=== PATIENT | male | born 2000 | race Caucasian/White ===

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

== ENCOUNTER 2019-01-31 15:05 | Emergency (ER) | payer OTHER ==
[2019-01-31 15:35] VITALS: BP 116/69
--- NOTE | 2019-01-31 15:54 | UC ---
Ear Complaint HPI - HPI Summary HPI Summary: 18 yo male presents with ear pain. He tells me that he has a history of chronic ear infections. Over the last 2 weeks has had b/l ear fullness. Has not taken anything OTC for this. Over the last 2-3 days has had left ear pain and decreased hearing. He denies headache, sinus symptoms, sore throat, cough. - History of Current Complaint Chief Complaint: UCEar Stated Complaint: EARACHE Time Seen by Provider: 01/31/19 15:54 Hx Obtained From: Patient Onset/Duration: Gradual Onset Severity Initially: Mild Severity Currently: Mild Pain Intensity: 3 Pain Scale Used: 0-10 Numeric - Allergies/Home Medications Allergies/Adverse Reactions: Allergies Allergy/AdvReac Type Severity Reaction Status Date / Time No Known Allergies Allergy Verified 01/31/19 15:35 PMH/Surg Hx/FS Hx/Imm Hx - Additional Past Medical History Additional PMH: None - Surgical History Surgical History: Yes Surgery Procedure, Year, and Place: appendectomy 2002 - Family History Known Family History: Positive: Other - "cancer" - Social History Lives: With Family Alcohol Use: None Substance Use Type: Other Substance Use Comment - Amount & Last Used: thc concentrate daily Smoking Status (MU): Never Smoked Tobacco - Immunization History Most Recent Influenza Vaccination: doesn't get Vaccination Up to Date: Yes Review of Systems All Other Systems Reviewed And Are Negative: No Constitutional: Positive: Negative Skin: Positive: Negative Eyes: Positive: Negative ENT: Positive: Ear Ache Respiratory: Positive: Negative Cardiovascular: Positive: Negative Gastrointestinal: Positive: Negative Neurological: Positive: Negative Psychological: Positive: Negative Physical Exam - Summary Physical Exam Summary: GENERAL: NAD. WDWN. No pain distress. SKIN: No rashes, sores, lesions, or open wounds. HEENT: Head: AT/NC Eyes: EOM intact. Conjunctiva clear without inflammation or discharge. Ears: Hearing grossly normal. LEFT EAR: Rivera/brown cerumen impacted within. S/p disimpaction; TMs intact, no bulging, erythema, or edema. Nose: Nasal mucosa pink and moist. NTTP maxillary and frontal sinus. Throat: Posterior oropharynx without exudates, erythema, or tonsillar enlargement. Uvula midline. NECK: Supple. Nontender. No lymphadenopathy. CHEST: CTAB. No accessory muscle use. Breathing comfortably and in no distress. CV: RRR. Pulses intact. Cap refill <2seconds NEURO: Alert. PSYCH: Age appropriate behavior. Triage Information Reviewed: Yes Vital Signs: Initial Vital Signs Temp 99.3 F 01/31/19 15:28 Pulse 73 01/31/19 15:28 Resp 16 01/31/19 15:28 BP 116/69 01/31/19 15:28 Pulse Ox 100 01/31/19 15:28 Vital Signs Reviewed: Yes Ear Complaint Course/Dx - Course Course Of Treatment: Cerumen impaction left ear with successful disimpaction by nursing. Pt had complete resolution of symptoms - Differential Dx/Diagnosis Provider Diagnosis: Cerumen impaction Discharge ED - Sign-Out/Discharge Documenting (check all that apply): Patient Departure All imaging exams completed and their final reports reviewed: No Studies - Discharge Plan Condition: Good Disposition: HOME Prescriptions: Fluticasone NASAL SPRAY 50MCG* [Flonase NASAL SPRAY 50MCG*] 2 spray BOTH NARES DAILY #1 btl Loratadine [Claritin] 10 mg PO DAILY #14 tablet Patient Education Materials: Cerumen Impaction (ED) Referrals: Kwasi Ruby MD [Primary Care Provider] - Additional Instructions: If you develop a fever, shortness of breath, chest pain, new or worsening symptoms - please call your PCP or go to the ED immediately. - Billing Disposition and Condition Condition: GOOD Disposition: Home
== END 2019-01-31 16:51 | disposition home or self-care (01) ==
LOC: UCEAST 15:05
DX: H61.22 Impacted cerumen, left ear (principal)
CPT/HCPCS: 99213; G0463